=== PATIENT | female | born 2000 | race Caucasian/White ===

== ENCOUNTER 2020-09-08 11:25 | Emergency (ER) | payer OTHER, SELFPAY ==
[2020-09-08 11:31] VITALS: BP 111/63; PULSE 86; RESP 12; TEMP 36.5; O2SAT 99
--- NOTE | 2020-09-08 11:41 | ED.WOUNDLAC ---
HPI - Wound/Laceration General Chief Complaint: Wound/Laceration Stated Complaint: Laceration to left thumb Time Seen by Provider: 09/08/20 11:35 Source: patient Mode of arrival: ambulatory Limitations: no limitations History of Present Illness HPI narrative: Kaden is a 19 yo female with no PMH who was cutting onions and cut L thumb POA. control bleeding as long as thumb held stable, appears to have avulsed part of very tip of thumb, left. No comorbid morbid conditions no nausea vomiting diarrhea. Occurred at work, dressing intact Related Data Home Medications Medication Instructions Recorded Confirmed cholecalciferol (vitamin D3) 25 1,000 unit PO DAILY 11/20/19 12/21/19 mcg (1,000 unit) capsule montelukast [Singulair] 10 mg PO DAILY 09/08/20 09/08/20 Allergies Allergy/AdvReac Type Severity Reaction Status Date / Time peanut Allergy Unknown Anaphylactic Verified 09/08/20 11:57 Shock Review of Systems Review of Systems: Narrative: CONSTITUTIONAL: Denies fever, chills, sweats. EYES: Denies visual changes, redness, discharge. ENT: Denies rhinorrhea, congestion, sore throat, otalgia. CARDIOVASCULAR: Denies chest pain, palpitations, edema. RESPIRATORY: Denies dyspnea, wheezing, cough GASTROINTESTINAL: Denies abdominal pain, nausea, vomiting, diarrhea. GENITOURINARY: Denies dysuria, hematuria, abnormal discharge SKIN: Denies rash or itching. Avulsion injury to left thumb, distal NEUROLOGIC: Denies numbness, or focal weakness. PSYCHIATRIC: Denies anxiety or depression. [facility] Past Medical History Medical History (Updated 09/08/20 @ 12:06 by Katharine Osborne CNP) ADD (attention deficit disorder) Anxiety Asthma Back pain Family History Family History Father Hypertension Diabetes mellitus Heart disease Mother No problems noted. Sibling No problems noted. Grandparent Diabetes mellitus Heart disease Afib Thyroid disease Cataract COPD (chronic obstructive pulmonary disease) Chest pain Arthritis Non Hodgkin's lymphoma Social History Social History (Updated 09/08/20 @ 11:59 by Katharine Osborne CNP) Smoking status: Current every day smoker Tobacco type: e-cigarettes/vaping Alcohol intake: current Gender identity (if verbalized by the patient): Female Comments At time of signature, I agree with nursing past medical, surgical, social and family history. There is no relevant family history pertinent to the presenting complaint. Chest Exam Narrative: Exam Narrative: GENERAL: This is a well-nourished, well-developed patient, in mild distress. HEAD: normocephalic, atraumatic. EYES: Sclera clear/white. Vision is grossly intact. EARS: External ears normal. Hearing grossly intact. NOSE: External nose normal without nasal discharge, nares without redness, no rhinorrhea. THROAT: Mucous membranes moist, NECK: Neck supple, non-tender CARDIOVASCULAR: Regular rate and rhythm without murmurs, gallops, or rubs. RESPIRATORY: Clear to auscultation. Breath sounds equal bilaterally. No wheezes, rales, or rhonchi. GASTROINTESTINAL: Abdomen soft, SKIN: warm, intact with no suspicious lesions or rash, good texture and turgor. NEURO: awake, alert, and oriented to person, place and time. There were no obvious focal neurologic abnormalities. Steady gait EXTREMITIES: Normal range of motion. BACK: Nontender without deformity Course Course Emergency Course: Patient was cutting onions at work and cut distal part of left thumb Laceration repair with Dermabond and dressed with tube gauze Vital Signs Vital signs: Vital Signs Temperature 97.7 F 09/08/20 11:31 Pulse Rate 86 09/08/20 11:31 Respiratory Rate 12 09/08/20 11:31 Blood Pressure 111/63 09/08/20 11:31 Pulse Oximetry 99 09/08/20 11:31 Temperature 97.7 F 09/08/20 11:31 Pulse Rate 86 09/08/20 11:31 Respiratory Rate 12 09/08/20 11:3
[2020-09-08] MEDS: TETANUS,DIPHTHERIA,AC PERTUSSIS ADULT (0.5 ML) BOOSTRIX IM (11:52)
== END 2020-09-08 12:23 | disposition home or self-care (01) ==
PROVIDERS: Emergency Provider Nurse Practitioner
DX: S61.012A Laceration without foreign body of left thumb without damage to nail, initial encounter (principal); W45.8XXA Other foreign body or object entering through skin, initial encounter; Y99.0 Civilian activity done for income or pay; Z23 Encounter for immunization; F17.200 Nicotine dependence, unspecified, uncomplicated; J45.909 Unspecified asthma, uncomplicated
CPT/HCPCS: 12001; 90471; 90715; 99213; G0463

== ENCOUNTER 2020-10-11 13:03 | Outpatient (NON) | payer OTHER, SELFPAY ==
[2020-10-17 22:17] LABS: SARS-CoV-2 RNA PCR Negative
== END 2020-10-11 13:04 ==
LOC: ANHCOVIDDT 13:05
PROVIDERS: PCP Physician Assistant; Visit Provider Family Medicine
DX: Z20.828 Contact with and (suspected) exposure to other viral communicable diseases (principal); R09.81 Nasal congestion
CPT/HCPCS: C9803; U0003

== ENCOUNTER 2020-12-04 13:51 | Emergency (ER) | payer OTHER, SELFPAY ==
[2020-12-04 13:56] VITALS: BP 124/67; PULSE 87; RESP 16; TEMP 36.8; O2SAT 98
--- NOTE | 2020-12-04 14:05 | ED.FEMALEGU ---
HPI - Female Genitourinary General Chief complaint: Urogenital-Female Stated complaint: POS UTI Source: patient Mode of arrival: ambulatory Limitations: no limitations History of Present Illness HPI Narrative: Patient is a 20-year-old female who complains of dysuria and frequency x2 days. She denies hematuria. She denies fever, nausea, vomiting or other complaints. She denies taking any swvj-gal-jcabzug medications for symptom relief. MD elicited complaint: UTI Related Data Home Medications Medication Instructions Recorded Confirmed cholecalciferol (vitamin D3) 25 1,000 unit PO DAILY 11/20/19 12/04/20 mcg (1,000 unit) capsule montelukast [Singulair] 10 mg PO DAILY 09/08/20 12/04/20 Adult Probiotic 1 tab-cap PO DAILY 12/04/20 12/04/20 Fish Oil 1 tab-cap PO DAILY 12/04/20 Natural Vitamin E 1 tab-cap PO DAILY 12/04/20 12/04/20 fluoxetine [Prozac] 10 mg PO DAILY 12/04/20 12/04/20 valacyclovir 500 mg PO BID 12/04/20 12/04/20 Allergies Allergy/AdvReac Type Severity Reaction Status Date / Time peanut Allergy Unknown Anaphylactic Verified 12/04/20 13:53 Shock Review of Systems Review of Systems: Narrative: CONSTITUTIONAL: Denies fever, chills, or sweats. EYES: Denies visual changes, redness, or discharge. ENT: Denies rhinorrhea, congestion, sore throat, or otalgia. CARDIOVASCULAR: Denies chest pain, palpitations, or edema. RESPIRATORY: Denies cough or dyspnea. GASTROINTESTINAL: Denies abdominal pain, nausea, vomiting, or diarrhea. GENITOURINARY: Reports dysuria and frequency x2 days SKIN: Denies rash or itching. MUSCULOSKELETAL: Denies back pain, joint pain, or myalgia. NEUROLOGIC: Denies headache, numbness, dizziness, or weakness. PSYCHIATRIC: Denies anxiety or depression. [facility] Past Medical History Medical History (Updated 12/04/20 @ 14:52 by NIC Whitney) ADD (attention deficit disorder) Anxiety Asthma Back pain Family History Family History Father Hypertension Diabetes mellitus Heart disease Mother No problems noted. Sibling No problems noted. Grandparent Diabetes mellitus Heart disease Afib Thyroid disease Cataract COPD (chronic obstructive pulmonary disease) Chest pain Arthritis Non Hodgkin's lymphoma Social History Social History Smoking status: Current every day smoker Tobacco type: e-cigarettes/vaping Alcohol intake: current Gender identity (if verbalized by the patient): Female Comments At the time of signature, I have reviewed and agree with nursing past medical, surgical, social, and family history unless otherwise noted. Please see nursing chart for further information. There is no relevant family history pertinent to the presenting complaint. Exam Narrative: Exam Narrative: GENERAL: Well-appearing, well-nourished, and in no acute distress. HEAD: Normocephalic, atraumatic. EYES: No redness or drainage. Conjunctiva are normal. ENT: Mucous membranes pink and moist. CHEST: No respiratory distress. HEART: Regular rate and rhythm. EXTREMITIES: Normal range of motion. No edema. SKIN: Warm, dry, no rash. NEURO: No focal deficits. Alert and oriented x3. Gait steady. PSYCH: Normal affect. No signs of depression or anxiety. Course Vital Signs Vital signs: Vital Signs Temperature 36.8 C 12/04/20 13:56 Pulse Rate 87 12/04/20 13:56 Respiratory Rate 16 12/04/20 13:56 Blood Pressure 124/67 12/04/20 13:56 Pulse Oximetry 98 12/04/20 13:56 Temperature 36.8 C 12/04/20 13:56 Pulse Rate 87 12/04/20 13:56 Respiratory Rate 16 12/04/20 13:56 Blood Pressure 124/67 12/04/20 13:56 Pulse Oximetry 98 12/04/20 13:56 Reviewed MDM - Female Genitourinary MDM Narrative Medical decision making narrative: Patient shows leukocytes on her UA. Patient most likely has UTI. Patient to be treated with antibi
== END 2020-12-04 14:58 | disposition home or self-care (01) ==
PROVIDERS: Emergency Provider Nurse Practitioner; PCP Physician Assistant
DX: N39.0 Urinary tract infection, site not specified (principal); F17.200 Nicotine dependence, unspecified, uncomplicated; J45.909 Unspecified asthma, uncomplicated; F41.9 Anxiety disorder, unspecified
CPT/HCPCS: 81003; 87086; 99213; G0463

== ENCOUNTER 2021-01-20 11:32 | Outpatient (CLI) | payer OTHER, SELFPAY | END 2021-01-20 11:33 | disposition home or self-care (01) | LOC: ANHCOVIDVC 11:32 | PROVIDERS: PCP Physician Assistant | DX: Z23 Encounter for immunization (principal) | CPT/HCPCS: 0001A; 91300 ==

== ENCOUNTER 2021-02-10 11:29 | Outpatient (CLI) | payer OTHER, SELFPAY | END 2021-02-10 11:30 | disposition home or self-care (01) | LOC: ANHCOVIDVC 11:29 | PROVIDERS: PCP Family Medicine | DX: Z23 Encounter for immunization (principal) | CPT/HCPCS: 0002A; 91300 ==

== ENCOUNTER 2021-06-03 16:45 | Emergency (ER) | payer OTHER, SELFPAY ==
--- NOTE | ~2021-06-03 | XR_ITS ---
EXAMINATION: XR lumbar spine 2-3V DATE: 06/03/2021 17:56 INDICATION: Low back pain. TECHNIQUE: 3 views of the lumbar spine were obtained. COMPARISON: None. FINDINGS: Bone alignment is normal. Vertebral body heights and intervertebral disc heights are normal . The facet joints are normal. IMPRESSION: 1. Normal lumbar spine. Reviewed, dictated and finalized at location A. IMPRESSION: 1. Normal lumbar spine.
[2021-06-03 16:46] VITALS: BP 112/71; PULSE 77; RESP 20; TEMP 36.6; O2SAT 100
--- NOTE | 2021-06-03 17:44 | ED.BACK ---
HPI - Back Pain/Injury General Chief Complaint: Back Pain/Injury Stated Complaint: lolw back pain Time Seen by Provider: 06/03/21 17:26 Source: patient Mode of arrival: ambulatory Limitations: no limitations History of Present Illness HPI Narrative: This is a 20 year old male that presents to the ER for low back pain present over the last couple of weeks. Reports her sister popped her back. It has been bothering her since then. Reports the pain is constant and achy. Sometimes it is sharp. It is worse after being at work all day. It radiates into her legs. Denies fever, saddle anesthesia, or bowel/bladder incontinence. Related Data Home Medications Medication Instructions Recorded Confirmed cholecalciferol (vitamin D3) 25 1,000 unit PO DAILY 11/20/19 12/04/20 mcg (1,000 unit) capsule montelukast [Singulair] 10 mg PO DAILY 09/08/20 12/04/20 Adult Probiotic 1 tab-cap PO DAILY 12/04/20 12/04/20 Fish Oil 1 tab-cap PO DAILY 12/04/20 Natural Vitamin E 1 tab-cap PO DAILY 12/04/20 12/04/20 valacyclovir 500 mg PO BID 12/04/20 12/04/20 Allergies Allergy/AdvReac Type Severity Reaction Status Date / Time peanut Allergy Unknown Anaphylactic Verified 12/04/20 13:53 Shock Review of Systems Review of Systems: CONSTITUTIONAL: Denies fever SKIN: Denies rash MUSCULOSKELETAL: Reports back pain, joint pain, and myalgia. NEUROLOGIC: Denies numbness, or weakness. All systems reviewed & are unremarkable except as noted in HPI and below PMFSH Past Medical History Medical History (Updated 06/03/21 @ 18:53 by Tanja Mcdonnell PA-C) ADD (attention deficit disorder) Anxiety Asthma Back pain Family History Family History Father Hypertension Diabetes mellitus Heart disease Mother No problems noted. Sibling No problems noted. Grandparent Diabetes mellitus Heart disease Afib Thyroid disease Cataract COPD (chronic obstructive pulmonary disease) Chest pain Arthritis Non Hodgkin's lymphoma Social History Social History Smoking status: Current every day smoker Tobacco type: e-cigarettes/vaping Alcohol intake: current Alcohol use details: daily Gender identity (if verbalized by the patient): Female Exam Narrative: GENERAL: Well-appearing, well-nourished, and in no acute distress. HEAD: Normocephalic, atraumatic. EYES: EOMI. CHEST: Clear to auscultation. No respiratory distress. No wheezes rales or rhonchi HEART: Regular rate and rhythm. No murmur heard. Normal peripheral pulses. BACK: No midline spinal tenderness EXTREMITIES: Normal range of motion. No edema. Strength equal in bilateral lower extremities (5/5). Normal DP pulses SKIN: Warm, dry, no rash. NEURO: No focal deficits. Alert and oriented x3. PSYCH: Normal mood and affect Course Vital Signs Vital signs: Vital Signs Temperature 97.9 F 06/03/21 16:46 Pulse Rate 77 06/03/21 16:46 Respiratory Rate 20 06/03/21 16:46 Blood Pressure 112/71 06/03/21 16:46 Pulse Oximetry 100 06/03/21 16:46 Temperature 97.9 F 06/03/21 16:46 Pulse Rate 77 06/03/21 16:46 Respiratory Rate 20 06/03/21 16:46 Blood Pressure 112/71 06/03/21 16:46 Pulse Oximetry 100 06/03/21 16:46 MDM - Back Pain/Injury MDM Narrative Medical decision making narrative: Patient presents to the emergency department for low back pain present over the last couple of weeks. No certain trauma. She is neurologically intact. Lumbar spine x-rays without acute osseous abnormalities. Patient updated on case findings. Instructed to rest, ice and take [id number] pain medication as needed. Will be given muscle relaxer as needed for pain. She is to follow-up with primary care doctor. She was given warnings to return to the ER Imaging Data Radiologist's impression: ITS Impressions Lumbar Spine X-Ray 06/03/21 17:59
[2021-06-03] MEDS: KETOROLAC (*BKC) 60 MG/2 ML VIAL IM (18:18)
[2021-06-03] MEDS: ACETAMINOPHEN 500 MG TABLET 1000 MG PO (18:18)
[2021-06-03 19:02] VITALS: BP 139/75; PULSE 84; RESP 17; O2SAT 98
== END 2021-06-03 19:05 | disposition home or self-care (01) ==
PROVIDERS: Emergency Provider Emergency Medicine; PCP Physician Assistant
DX: M54.5 Low back pain (principal); F98.8 Other specified behavioral and emotional disorders with onset usually occurring in childhood and adolescence; F41.9 Anxiety disorder, unspecified; J45.909 Unspecified asthma, uncomplicated; F17.290 Nicotine dependence, other tobacco product, uncomplicated
CPT/HCPCS: 72100; 96372; 99283; A9270; J1885

== ENCOUNTER 2021-09-22 17:19 | Emergency (ER) | payer OTHER, SELFPAY ==
--- NOTE | ~2021-09-22 | XR_ITS ---
EXAMINATION: XR ankle RT min 3V EXAM DATE: 09/22/2021 17:43 INDICATION: Inversion Injury, lateral Malleolus Pain . Initial encounter. TECHNIQUE: Right ankle frontal, lateral and oblique projections obtained and reviewed. There is no p rior study for comparison. FINDINGS: The right ankle mortise appears intact. There are no acute fractures or dislocations iden tified. There is no subcutaneous gas. There is soft tissue swelling over the ankle anterolaterally. There are no radiopaque foreign bodies. IMPRESSION: 1. XR ankle RT min 3V exam without acute osseous findings. Reviewed, dictated and finalized at location A. [employer]
[2021-09-22 17:26] VITALS: BP 102/58; PULSE 70; RESP 14; TEMP 37.4; O2SAT 99
--- NOTE | 2021-09-22 17:43 | PC.NURSE ---
PT DECLINED WHEELCHAIR AND ICE FOR COMFORT
--- NOTE | 2021-09-22 17:53 | ED.LOWEXIN ---
HPI - Extremity Injury (Lower) General Chief Complaint: Extremity Injury, Lower Stated Complaint: rt ankle swelling Source: patient and RN notes reviewed Mode of arrival: ambulatory History of Present Illness HPI Narrative: This is a 20-year-old female who presented to our urgent care with complaints of right ankle pain status post trauma. According to the patient on Saturday she fell and twisted her right ankle. Patient notes that while she was at home she iced wrap and use ibuprofen for the inflammation. Patient noted that she decided to come to our facility because she did not have any improvement with her situation. No neurovascular deficiency, compartmental syndrome, pulses are present capillary refill within normal limits. Patient notes that her pain increases with inversion of her foot. Related Data Home Medications Medication Instructions Recorded Confirmed cholecalciferol (vitamin D3) 25 1,000 unit PO DAILY 11/20/19 09/22/21 mcg (1,000 unit) capsule montelukast [Singulair] 10 mg PO DAILY 09/08/20 09/22/21 valacyclovir 500 mg PO BID 12/04/20 09/22/21 doxycycline monohydrate 100 mg PO DAILY 09/22/21 09/22/21 etonogestrel [Nexplanon] 1 implant SUBDERMAL ONCE 09/22/21 09/22/21 fluoxetine 20 mg PO DAILY 09/22/21 09/22/21 spironolactone 50 mg PO DAILY 09/22/21 09/22/21 Allergies Allergy/AdvReac Type Severity Reaction Status Date / Time peanut Allergy Unknown Anaphylactic Verified 09/22/21 17:36 Shock Review of Systems Review of Systems: A 14 organ system Review of Systems was performed and pertinent positives included in the HPI, otherwise remaining ROS is negative. [facility] Past Medical History Medical History (Updated 09/22/21 @ 18:03 by CHELSEA Heath) ADD (attention deficit disorder) Anxiety Asthma Back pain Family History Family History (Updated 09/22/21 @ 17:58 by CHELSEA Heath) Father Hypertension Diabetes mellitus Heart disease Mother No problems noted. Sibling No problems noted. Grandparent Diabetes mellitus Heart disease Afib Thyroid disease Cataract COPD (chronic obstructive pulmonary disease) Chest pain Arthritis Non Hodgkin's lymphoma Other Family history non-contributory Social History Social History Smoking status: Current every day smoker Tobacco type: e-cigarettes/vaping Alcohol intake: current Alcohol use details: daily Gender identity (if verbalized by the patient): Female Exam Narrative: GENERAL: This is a well-nourished, well-developed patient, in no apparent distress. HEAD: normocephalic, atraumatic. EYES: PERRL. Sclera clear/white. Vision is grossly intact. EARS: External ears normal, auditory canals clear and without drainage, TMs normal without perforation. Hearing grossly intact. NOSE: External nose normal with no obvious nasal discharge, nares without redness, no rhinorrhea. THROAT: Mucous membranes moist, posterior pharynx clear. NECK: Neck supple, non-tender without lymphadenopathy, masses or thyromegaly. CARDIOVASCULAR: Regular rate and rhythm without murmurs, gallops, or rubs. RESPIRATORY: Clear to auscultation. Breath sounds equal bilaterally. No wheezes, rales, or rhonchi. GASTROINTESTINAL: Abdomen soft, non-tender, nondistended. Bowel sounds are active. No hepato-splenomegaly, or palpable masses. No guarding. SKIN: warm, intact with no suspicious lesions or rash, good texture and turgor. NEURO: awake, alert, and oriented to person, place and time. There were no obvious focal neurologic abnormalities. Steady gait EXTREMITIES: Right ankle limited range of motion due to pain with edema . No calf tenderness. Negative Homans sign bilaterally. BACK: Nontender without deformity or crepitance. No flank tenderness. Course Vital Signs Vital signs: Vital Signs Temperature 99.4 F 09/22/21 17:26 Pulse Rate 70 09/22/21 17:26 Respiratory Rate
== END 2021-09-22 18:10 | disposition home or self-care (01) ==
PROVIDERS: Emergency Provider Nurse Practitioner; PCP Physician Assistant
DX: S93.401A Sprain of unspecified ligament of right ankle, initial encounter (principal); S96.911A Strain of unspecified muscle and tendon at ankle and foot level, right foot, initial encounter; W19.XXXA Unspecified fall, initial encounter; J45.909 Unspecified asthma, uncomplicated; F41.9 Anxiety disorder, unspecified
CPT/HCPCS: 73610; 99213; G0463

== ENCOUNTER 2021-09-26 07:58 | Emergency (ER) | payer OTHER, SELFPAY ==
--- NOTE | ~2021-09-26 | CT_ITS ---
EXAMINATION: CT abdomen pelvis w con DATE: 09/26/2021 10:33 INDICATION: Right flank pain and abdominal pain. TECHNIQUE: Computed tomography (CT) of the abdomen and pelvis was performed with 100 mL Omnipaque-350 intravenous contrast. Automated exposure control and iterative reconstruction technique were employe d. The dose-length product was 464.37 mGy-cm. COMPARISON: 02/11/2018 FINDINGS: Lung bases are clear. Heart size is normal. No pericardial or pleural effusion. Small focus of hepati c steatosis at the ligamentum teres. Gallbladder, pancreas, and spleen and bilateral adrenal glands a re normal. 2 mm stone at the right ureterovesicular junction. No other evident urolithiasis. Bilatera l kidneys are normal symmetric enhancement and no hydronephrosis. Bladder is normal. Retroverted uter us and bilateral adnexa are unremarkable. Bowels are normal with no wall thickening or obstruction. N ormal retrocecal appendix. No free intraperitoneal gas or fluid. No pathologically enlarged abdominal or pelvic lymphadenopathy. Bones are unremarkable. IMPRESSION: 1. Nonobstructing 2 mm stone at the right ureterovesicular junction without hydronephrosis. Reviewed, dictated and finalized at location A. TO CHIP FRYER IMPRESSION: 1. Nonobstructing 2 mm stone at the right ureterovesicular junction without hyd ronephrosis.
[2021-09-26 08:01] VITALS: BP 115/76; PULSE 76; RESP 16; TEMP 36.9; O2SAT 99
--- NOTE | 2021-09-26 10:03 | ED.GENADULT ---
HPI - General Adult General Chief complaint: Abdominal Pain Stated complaint: back pain Time Seen by Provider: 09/26/21 08:01 Source: patient and RN notes reviewed History of Present Illness HPI narrative: Patient is a 20 y/o female complaining right lower abdominal pain starting 2 days ago. She describes her pain as stabbing and cramping. She rates her pain as 7/10. She took Ibuprofen which helps slight. She had one episode of vomiting today. She has no diarrhea, dysuria or hematuria. She also has some right back pain which attributed to a fall a few days ago. Related Data Home Medications Medication Instructions Recorded Confirmed cholecalciferol (vitamin D3) 25 1,000 unit PO DAILY 11/20/19 09/22/21 mcg (1,000 unit) capsule montelukast [Singulair] 10 mg PO DAILY 09/08/20 09/22/21 valacyclovir 500 mg PO BID 12/04/20 09/22/21 doxycycline monohydrate 100 mg PO DAILY 09/22/21 09/22/21 etonogestrel [Nexplanon] 1 implant SUBDERMAL ONCE 09/22/21 09/22/21 fluoxetine 20 mg PO DAILY 09/22/21 09/22/21 spironolactone 50 mg PO DAILY 09/22/21 09/22/21 Allergies Allergy/AdvReac Type Severity Reaction Status Date / Time peanut Allergy Unknown Anaphylactic Verified 09/22/21 17:36 Shock Review of Systems Constitutional: Constitutional: Denies chills, Denies fever(s), Denies headache(s) and Denies weakness Eyes: Eyes: Denies blurry vision ENT: Denies headache(s) and Denies neck pain Cardiovascular: Cardiovascular: Denies chest pain and Denies dyspnea Respiratory: Respiratory: Denies cough and Denies dyspnea Gastrointestinal: Gastrointestinal: Reports abdominal pain, Denies diarrhea, Reports nausea and Reports vomiting Genitourinary: Genitourinary: Denies hematuria and Denies dysuria Musculoskeletal: Musculoskeletal: Reports back pain and Denies neck pain Neurologic: Denies headache(s) and Denies weakness [facility] Past Medical History Medical History (Updated 09/26/21 @ 12:47 by Aranza Coulter MD) ADD (attention deficit disorder) Anxiety Asthma Back pain Family History Family History Father Hypertension Diabetes mellitus Heart disease Mother No problems noted. Sibling No problems noted. Grandparent Diabetes mellitus Heart disease Afib Thyroid disease Cataract COPD (chronic obstructive pulmonary disease) Chest pain Arthritis Non Hodgkin's lymphoma Other Family history non-contributory Social History Social History Smoking status: Current every day smoker Tobacco type: e-cigarettes/vaping Alcohol intake: current Alcohol use details: daily Gender identity (if verbalized by the patient): Female Exam Const: General: no acute distress and well developed Orientation/consciousness: oriented to person, oriented to place, oriented to time and patient oriented x3 HENMT: Head: normocephalic Ears: external ears normal General nose exam: Normal external nose present Eyes: General: appearance normal, both eyes and all related structures Conjunctivae: conjunctivae normal Neck: Neck: normal visual inspection and full ROM Chest: Chest palpation & inspection: normal inspection of the chest and no tenderness Resp: Effort & Inspection: normal respiratory effort Auscultation: clear to auscultation bilaterally Cardio: Rate: regular rate Rhythm: regular rhythm GI: GI Palp: No abdominal tenderness and Yes Soft to palpation Skin: General skin exam: normal color and turgor normal Neuro: General: oriented to person, oriented to place, oriented to time and patient oriented x3 Cognition (Neuro): normal cognition Extrem: General: normal to inspection, full ROM and no pedal edema Psych: Appearance: grossly normal Mental Status: mental status grossly normal Affect: normal affect Course Vital Signs Vital signs: Vital Signs Temperature 36.9 C 09/26/21 08:
[2021-09-26 10:06] LABS: Basophils Percent Auto 0.2 % (0.2-1.2); Eosinophils Absolute Auto 0.1 K/mm3 (0-0.3); Eosinophils Percent Auto 1.1 % (0-4.4); Hematocrit 41.4 % (37.0-47.0); Hemoglobin 13.5 g/dL (12.0-15.0); Immature Granulocyte Absolute 0.03 K/mm3 (0.00-0.031); Immature Granulocyte Percent A 0.4 % (0-0.5); Lymphocytes Absolute Auto 2.07 K/mm3 (0.9-3.2); Lymphocytes Percent Auto 24.7 % (18.3-44.2); Mean Corpuscular HGB Conc 32.6 g/dl (32-36); Mean Corpuscular Hemoglobin 29.9 pg (26-34); Mean Corpuscular Volume 91.8 fl (80-100); Mean Platelet Volume 9.1 fl (7.4-10.4); Monocytes Absolute Auto 0.6 K/mm3 (0.1-0.6); Monocytes Percent Auto 7.4 % (2.6-8.5); Neutrophils Absolute Auto 5.6 K/mm3 (1.3-6.7); Neutrophils Percent Auto 66.2 % (45.5-73.1); Platelet Count Result 283 k/mm3 (150-375); Red Blood Count 4.51 M/mm3 (4.2-5.4); Red Cell Distribution Width 13.5 % (11.5-14.5); White Blood Count 8.4 K/mm3 (4.5-10.0)
[2021-09-26] MEDS: KETOROLAC 30 MG/ML VIAL (*BKC) IV PUSH (10:06)
[2021-09-26] MEDS: METOCLOPRAMIDE HCL INJ 10 MG/2 ML VIAL IV PUSH (10:07)
[2021-09-26 10:10] LABS: Alanine Aminotransferase 17 U/L (4-35); Albumin Level 4.6 g/dL (3.5-5.1); Alkaline Phosphatase 76 U/L (38-126); Anion Gap 7 mmol/L (8-16); Aspartate Amino Transferase 22 U/L (14-36); Bilirubin,Total 0.5 mg/dL (0.2-1.3); Blood Urea Nitrogen 13 mg/dL (7-17); Calcium 9.9 mg/dL (8.4-10.2); Carbon Dioxide 27 mmol/L (22-30); Chloride 102 mmol/L (98-107); Estimated CRCL calculation 92 ml/min; Estimated Glomerular Filt Rate > 60; Glucose 91 mg/dL (65-110); Potassium 4.1 mmol/L (3.4-5.0); Sodium 136 mmol/L (137-145)
[2021-09-26 10:13] LABS: Add Urine Microscopic? YES; Appearance Urine Cloudy (Clear); Bilirubin Urine Negative (Negative); Blood Urine 3+ (Negative); Color Urine Amber (Yellow); Glucose Urine UA Negative (Negative); Ketones Urine Trace mg/dL (Negative); Leukocyte Esterase Ur Negative LEU/UL (Negative); Mucus Urine Heavy /lpf; Nitrate Urine Negative (Negative); Protein Urine 2+ mg/dL (Negative); RBC Urine >75 /hpf (0-2); Squamous Epithelial Cell Urine Many /hpf (Few); Urobilinogen Urine Negative mg/dL (<2.0)
[2021-09-26 10:46] LABS: Specific Grav Ur 1.031 (1.001-1.035)
[2021-09-26 11:00] VITALS: BP 99/66; PULSE 63; RESP 18; O2SAT 99
[2021-09-26 13:13] VITALS: BP 105/58; PULSE 70; RESP 18; O2SAT 100
== END 2021-09-26 13:14 | disposition home or self-care (01) ==
PROVIDERS: Emergency Provider Emergency Medicine; PCP Physician Assistant
DX: N20.1 Calculus of ureter (principal); F98.8 Other specified behavioral and emotional disorders with onset usually occurring in childhood and adolescence; F41.9 Anxiety disorder, unspecified; J45.909 Unspecified asthma, uncomplicated; F17.210 Nicotine dependence, cigarettes, uncomplicated
CPT/HCPCS: 36415; 74177; 80053; 81001; 81025; 85025; 87086; 87088; 96374; 96375; 99284; J1885; J2765; Q9967

== ENCOUNTER 2021-12-13 18:09 | Emergency (ER) | payer OTHER, SELFPAY ==
[2021-12-13 18:14] VITALS: BP 106/57; PULSE 75; RESP 16; TEMP 37.7; O2SAT 99
--- NOTE | 2021-12-13 18:25 | ED.NAVMDI ---
HPI - Nausea/Vomiting/Diarrhea General Chief complaint: Nausea/Vomiting/Diarrhea Stated complaint: Vomiting Time Seen by Provider: 12/13/21 18:34 Source: patient and RN notes reviewed Mode of arrival: ambulatory Limitations: no limitations History of Present Illness HPI Narrative: 21-year-old female presents with concern for vomiting. She reports she had one episode of vomiting on Saturday, had no episodes of vomiting on Saturday, and had one episode of vomiting today. She denies abdominal pain, sore throat, nasal congestion, rhinorrhea, cough, body aches, chills, fever, sweats. She denies decreased appetite. She reports some nausea, however reports she usually has nausea due to her medications. MD elicited complaint: nausea and vomiting Related Data Home Medications Medication Instructions Recorded Confirmed cholecalciferol (vitamin D3) 25 1,000 unit PO DAILY 11/20/19 09/22/21 mcg (1,000 unit) capsule montelukast [Singulair] 10 mg PO DAILY 09/08/20 09/22/21 valacyclovir 500 mg PO BID 12/04/20 09/22/21 doxycycline monohydrate 100 mg PO DAILY 09/22/21 09/22/21 etonogestrel [Nexplanon] 1 implant SUBDERMAL ONCE 09/22/21 09/22/21 fluoxetine 20 mg PO DAILY 09/22/21 09/22/21 spironolactone 50 mg PO DAILY 09/22/21 09/22/21 Allergies Allergy/AdvReac Type Severity Reaction Status Date / Time peanut Allergy Unknown Anaphylactic Verified 12/13/21 18:12 Shock Review of Systems Review of Systems: CONSTITUTIONAL: Denies malaise, chills, sweats, or fever. ENT: Denies rhinorrhea, congestion, sinus pain, otalgia or sore throat. CARDIOVASCULAR: Denies chest pain, palpitations, or edema. RESPIRATORY: Denies cough or dyspnea. GASTROINTESTINAL: Denies abdominal pain, nausea, diarrhea, bloody, or mucous stools. She reports one episode of vomiting on Saturday, one episode of vomiting today GENITOURINARY: Denies dysuria or hematuria. MUSCULOSKELETAL: Denies myalgia. NEUROLOGIC: Denies headache. All systems reviewed & are unremarkable except as noted in HPI and below PMFSH Past Medical History Medical History (Updated 12/13/21 @ 18:45 by Lynda Watson NP) ADD (attention deficit disorder) Anxiety Asthma Back pain Family History Family History Father Hypertension Diabetes mellitus Heart disease Mother No problems noted. Sibling No problems noted. Grandparent Diabetes mellitus Heart disease Afib Thyroid disease Cataract COPD (chronic obstructive pulmonary disease) Chest pain Arthritis Non Hodgkin's lymphoma Other Family history non-contributory Social History Social History Smoking status: Current every day smoker Tobacco type: e-cigarettes/vaping Alcohol intake: current Alcohol use details: daily Gender identity (if verbalized by the patient): Female Comments At time of signature, agree with nursing past medical, surgical, social and family history. There is no relevant family history pertinent to the presenting complaint Exam Narrative: GENERAL: Well-appearing, well-nourished, and in no acute distress. HEAD: Normocephalic, atraumatic. EYES: PERRLA, conjunctivae clear, and EOMI. ENT: Nares clear, turbinates pink, no rhinorrhea or epistaxis. Mucous membranes moist. Oropharynx without edema, erythema, or lesions. Tonsils not enlarged and without exudate. NECK: Supple. No lymphadenopathy CHEST: Speaks in full sentences. No respiratory distress. HEART: Regular rate and rhythm. ABDOMEN: Soft, flat, nondistended. No guarding, rebound tenderness, or rigid. No pulsatilla masses. Bowel sounds present in all four quadrants. No organomegaly. Negative Liriano?s sign. No periumbilical tenderness. No Supra public tenderness or distension. No hernia noted. No scars or surface trauma. SKIN: Warm, dry, no rash. NEURO: Alert and oriented x3. PSYCH: Normal mood and affect Course Cours
== END 2021-12-13 19:17 | disposition home or self-care (01) ==
PROVIDERS: Emergency Provider Nurse Practitioner; PCP Physician Assistant
DX: R11.10 Vomiting, unspecified (principal); J45.909 Unspecified asthma, uncomplicated; F41.9 Anxiety disorder, unspecified
CPT/HCPCS: 99211; G0463

== ENCOUNTER 2022-04-06 22:11 | Emergency (ER) | payer OTHER, SELFPAY ==
[2022-04-06 22:26] VITALS: BP 114/63; PULSE 86; RESP 18; TEMP 36.8; O2SAT 99
--- NOTE | 2022-04-06 22:32 | ED.ALLEREA ---
HPI - Allergic Reaction General Chief complaint: Allergic Reaction Stated complaint: allergic reaction Time Seen by Provider: 04/06/22 22:25 History of Present Illness HPI narrative: Patient is a 21-year-old female with a history of allergies to peanuts here for evaluation of lip swelling and redness to her bilateral arms. Patient states that she was eating some sour Gummies in her bed 45 minutes [employer] when all of a sudden she felt flushed and that her lips were swelling up. Patient took 2 Benadryl and a pepcid with good resolution of her symptoms, but she presents to the ED per recommendation of her mother. Patient did not use her epi pen. No throat tightness, difficulty breathing, lightheadedness or other symptoms. Related Data Home Medications Medication Instructions Recorded Confirmed cholecalciferol (vitamin D3) 25 1,000 unit PO DAILY 11/20/19 12/13/21 mcg (1,000 unit) capsule montelukast 10 mg tablet 10 mg PO DAILY 09/08/20 12/13/21 (Singulair) valacyclovir 500 mg tablet 500 mg PO BID 12/04/20 12/13/21 doxycycline monohydrate 100 mg 100 mg PO DAILY 09/22/21 12/13/21 tablet etonogestrel 68 mg subdermal 1 implant subdermal ONCE 09/22/21 12/13/21 implant (Nexplanon) spironolactone 50 mg tablet 50 mg PO DAILY 09/22/21 12/13/21 Allergies Allergy/AdvReac Type Severity Reaction Status Date / Time peanut Allergy Unknown Anaphylactic Verified 12/13/21 18:12 Shock Review of Systems Review of Systems: Gen: Denies fevers or chills Eyes: Denies eye pain or visual change ENT: Reports lip swelling. Denies congestion Respiratory: Denies shortness of breath or cough CV: Denies chest pain or palpitations GI: Denies abdominal pain nausea, emesis or diarrhea denies burning, urgency, frequency or hematuria Musculoskeletal: Denies back pain or muscle pain Neuro: Denies numbness, tingling, weakness or focal weakness Skin: Reports redness to skin Except as documented, all other systems reviewed and negative PMFSH Past Medical History Medical History (Updated 04/06/22 @ 23:53 by Tanja Alcantara PA-C) ADD (attention deficit disorder) Anxiety Asthma Back pain Family History Family History Father Hypertension Diabetes mellitus Heart disease Mother No problems noted. Sibling No problems noted. Grandparent Diabetes mellitus Heart disease Afib Thyroid disease Cataract COPD (chronic obstructive pulmonary disease) Chest pain Arthritis Non Hodgkin's lymphoma Other Family history non-contributory Social History Social History Smoking status: Current every day smoker Tobacco type: e-cigarettes/vaping Alcohol intake: current Alcohol use details: daily Gender identity (if verbalized by the patient): Female Exam Narrative: APPEARANCE: No acute distress, nontoxic, resting in bed EYES: EOMI HEENT: Normocephalic, atraumatic, OMM RESPIRATORY: No respiratory distress. Clear to auscultation bilaterally with no rhonchi wheezing or rales. CARDIOVASCULAR: Regular rate and rhythm without murmurs rubs or gallops. ABDOMINAL: Soft, nontender, nondistended, no rebound or guarding MUSCULOSKELETAl: Moves all extremities. No clubbing, cyanosis or edema. NEURO: Awake and alert. Following commands, speech normal, no focal deficits SKIN: Face is flushed. Warm, dry. No rashes lesions or abrasions PSYCHIATRIC: Normal affect/mood, Course Vital Signs Vital signs: Vital Signs Temperature 98.2 F 04/06/22 22:26 Pulse Rate 86 04/06/22 22:26 Respiratory Rate 18 04/06/22 22:26 Blood Pressure 114/63 04/06/22 22:26 Pulse Oximetry 99 04/06/22 22:26 Oxygen Delivery Room Air 04/06/22 22:26 Temperature 98.2 F 04/06/22 22:26 Pulse Rate 73 04/06/22 23:38 Respiratory Rate 18 04/06/22 23:38 Blood Pressure 94/56 L 04/06/22 23:38 Pulse Oximetry 100 0
[2022-04-06] MEDS: FAMOTIDINE 20 MG TABLET 40 MG PO (23:04)
[2022-04-06] MEDS: predniSONE 20 MG TABLET 40 MG PO (23:04)
[2022-04-06 23:38] VITALS: BP 94/56; PULSE 73; RESP 18; O2SAT 100
== END 2022-04-07 00:11 | disposition home or self-care (01) ==
PROVIDERS: Emergency Provider Emergency Medicine; PCP Physician Assistant
DX: T78.40XA Allergy, unspecified, initial encounter (principal); J45.909 Unspecified asthma, uncomplicated; F17.290 Nicotine dependence, other tobacco product, uncomplicated; F98.8 Other specified behavioral and emotional disorders with onset usually occurring in childhood and adolescence; F41.9 Anxiety disorder, unspecified; Z91.010 Allergy to peanuts
CPT/HCPCS: 99283; A9270; J7512

== ENCOUNTER 2023-02-09 21:17 | Emergency (ER) | payer OTHER, SELFPAY ==
[2023-02-09] VITALS (15 sets, daily range): BP systolic 105–124; BP diastolic 62–85; PULSE 89–116; RESP 12–24; TEMP 36.4; O2SAT 96–100
--- NOTE | 2023-02-09 21:35 | ED.ALLEREA ---
HPI - Allergic Reaction General Chief complaint: Allergic Reaction <Nina Carroll MD - Last Filed: 02/09/23 22:45> Stated complaint: allergic reaction <Nina Carroll MD - Last Filed: 02/09/23 22:45> Time Seen by Provider: 02/09/23 21:27 <Nina Carroll MD - Last Filed: 02/09/23 22:45> Source: patient, EMS and RN notes reviewed <Nina Carroll MD - Last Filed: 02/09/23 22:45> Mode of arrival: EMS <Nina Carroll MD - Last Filed: 02/09/23 22:45> Limitations: no limitations <Nina Carroll MD - Last Filed: 02/09/23 22:45> History of Present Illness HPI narrative: This is a 22 year old female who presents for evaluation of an allergic reaction. Patient states she was watching tv when she developed lip swelling, sore throat and throat swelling. She also reports having itchy hands. She took benadryl 50 mg PO at that time. She states she has had allergic reactions in the past but benadryl usual resolves her symptoms. She continue to feel throat discomfort and wheezing so they called 911. She reports that she feels better. She still feels like throat discomfort, but her shortness of breath and wheezing have resolved. Her itching hands have resolved as well. She reports history of allergy to peanuts but she does not think she was exposed to any nuts. She ate banana bread that she made. She also reports eating pork dumpling that she has eating many times before. She reports she started taking new supplement of magnesium. <Nina Carroll MD - Last Filed: 02/09/23 22:45> Related Data Home medications: Home Medications Medication Instructions Recorded Confirmed cholecalciferol (vitamin D3) 25 1,000 unit PO DAILY 11/20/19 12/13/21 mcg (1,000 unit) capsule montelukast 10 mg tablet 10 mg PO DAILY 09/08/20 12/13/21 (Singulair) valacyclovir 500 mg tablet 500 mg PO BID 12/04/20 12/13/21 doxycycline monohydrate 100 mg 100 mg PO DAILY 09/22/21 12/13/21 tablet etonogestrel 68 mg subdermal 1 implant subdermal ONCE 09/22/21 12/13/21 implant (Nexplanon) spironolactone 50 mg tablet 50 mg PO DAILY 09/22/21 12/13/21 <Nina Carroll MD - Last Filed: 02/09/23 22:45> Allergies/adverse reactions: Allergies Allergy/AdvReac Type Severity Reaction Status Date / Time peanut Allergy Unknown Anaphylactic Verified 12/13/21 18:12 Shock <Nina Carroll MD - Last Filed: 02/09/23 22:45> Review of Systems Constitutional: Constitutional: Denies weakness <Nina Carroll MD - Last Filed: 02/09/23 22:45> ENT: Reports sore throat <Nina Carroll MD - Last Filed: 02/09/23 22:45> Cardiovascular: Cardiovascular: Denies syncope, Denies rapid heart rate, Denies irregular heart rhythm, Denies leg edema and Denies dyspnea <Nina Carroll MD - Last Filed: 02/09/23 22:45> Respiratory: Respiratory: Denies chest congestion, Denies hemoptysis, Denies excessive phlegm production, Reports dyspnea and Reports wheezing <Nina Carroll MD - Last Filed: 02/09/23 22:45> Gastrointestinal: Gastrointestinal: Denies abdominal pain, Denies hematochezia, Denies diarrhea and Denies vomiting <Nina Carroll MD - Last Filed: 02/09/23 22:45> Genitourinary: Genitourinary: Denies hematuria and Denies dysuria <Nina Carrlol MD - Last Filed: 02/09/23 22:45> Musculoskeletal: Musculoskeletal: Denies joint swelling, Denies loss of height and Denies muscle weakness <Nina Carroll MD - Last Filed: 02/09/23 22:45> Integumentary/Breasts: Skin/Breast: Reports pruritus and Denies rash <Nina Carroll MD - Last Filed: 02/09/23 22:45> Neurologic: Denies syncope, Denies focal weakness and Denies weakness <Nina Carroll MD - Last Filed: 02/09/23 22:45> [facility] Past Medical History Medical History: Medical History (Updated 02/09/23 @ 22:45 by Nina Carroll MD) ADD (attention deficit disorder) Anxiety Asthma Back pain <Nina Carroll MD - L
[2023-02-09] MEDS: predniSONE 20 MG TABLET 60 MG PO (22:15)
[2023-02-09] MEDS: EPINEPHrine HCL INJ 1 MG/ML AMPUL 0.3 MG IM (22:16)
[2023-02-09] MEDS: FAMOTIDINE 20 MG/2 ML VIAL IV PUSH (22:20)
[2023-02-10] VITALS (10 sets, daily range): BP systolic 116–128; BP diastolic 76–82; PULSE 90–103; RESP 18–22; O2SAT 95–98
== END 2023-02-10 02:04 | disposition home or self-care (01) ==
PROVIDERS: Emergency Provider General Practice; PCP Physician Assistant
DX: T78.40XA Allergy, unspecified, initial encounter (principal); J45.909 Unspecified asthma, uncomplicated; F98.8 Other specified behavioral and emotional disorders with onset usually occurring in childhood and adolescence; F41.9 Anxiety disorder, unspecified; F17.290 Nicotine dependence, other tobacco product, uncomplicated; Z91.010 Allergy to peanuts
CPT/HCPCS: 96372; 96374; 99284; J0171; J7512

== ENCOUNTER 2023-12-13 11:21 | Emergency (ER) | payer OTHER, SELFPAY ==
[2023-12-13 11:37] VITALS: BP 126/69; PULSE 81; RESP 16; TEMP 36.9; O2SAT 100
--- NOTE | 2023-12-13 11:54 | ED.URI ---
HPI - URI/Sore Throat General Chief Complaint: Upper Respiratory Infection Stated Complaint: SORE/SWOLLEN THROAT/COUGH/TIRED Time Seen by Provider: 12/13/23 11:55 Source: patient and RN notes reviewed Mode of arrival: ambulatory Limitations: no limitations History of Present Illness HPI Narrative: 23-year-old female presents to [facility] with complaint of sore throat, bilateral ear discomfort, sinus pressure, headache fatigue for 2 days. Patient has attempted to treat at home with ibuprofen with some relief. Patient endorses history of anxiety, seasonal allergies and anaphylactic allergy to magnesium. Patient able to tolerate fluids by mouth. Related Data Home Medications Medication Instructions Recorded Confirmed cholecalciferol (vitamin D3) 25 1,000 unit PO DAILY 11/20/19 11/21/23 mcg (1,000 unit) capsule valacyclovir 500 mg tablet 500 mg PO BID 12/04/20 11/21/23 etonogestrel 68 mg subdermal 1 implant subdermal ONCE 09/22/21 11/21/23 implant (Nexplanon) cetirizine 10 mg tablet (Zyrtec) 10 mg PO DAILY PRN Allergic 08/22/23 11/21/23 Symptoms cranberry extract 650 mg capsule 1,300 mg PO DAILY 08/22/23 11/21/23 omega-3 fatty acids 1,000 mg 1,000 mg PO DAILY 08/22/23 11/21/23 capsule Allergies Allergy/AdvReac Type Severity Reaction Status Date / Time magnesium Allergy Severe Anaphylaxis Verified 11/21/23 09:07 peanut Allergy Unknown Anaphylactic Verified 11/21/23 09:07 Shock Review of Systems Review of Systems: All systems reviewed & are unremarkable except as noted in HPI and below Constitutional: Constitutional: Reports fatigue and Reports headache(s) Eyes: Eyes: Reports no additional eye complaints ENT: Denies dizziness, Reports headache(s), Reports nasal congestion, Denies neck pain, Reports sinus pressure, Reports sore throat and Reports throat swelling Cardiovascular: Cardiovascular: Reports no additional cardiovascular complaints, Denies chest pain and Denies dyspnea Respiratory: Respiratory: Reports no additional respiratory complaints, Denies cough and Denies dyspnea Gastrointestinal: Gastrointestinal: Denies abdominal pain, Denies change in bowel habits, Denies dysphagia and Denies diarrhea Musculoskeletal: Musculoskeletal: Reports no additional musculoskeletal complaints Neurologic: Reports system reviewed and no additional complaints, except as documented Psychiatric: Psychiatric: Reports no additional psychiatric complaints PMFSH Past Medical History Medical History ADD (attention deficit disorder) Anxiety Asthma Back pain Broken wrist Left in high school Staph infection Removal 2003 Family History Family History Father Hypertension Diabetes mellitus Heart disease Mother Depression Sibling Depression Grandparent Diabetes mellitus Heart disease Afib Thyroid disease Cataract COPD (chronic obstructive pulmonary disease) Chest pain Arthritis Non Hodgkin's lymphoma Malignant neoplasm of prostate Skin cancer Hypertension Depression Other Family history non-contributory Social History Social History Smoking status: Current every day smoker Tobacco type: e-cigarettes/vaping Alcohol intake: current Alcohol use details: daily Substance use: current Substance use type: marijuana Gender identity (if verbalized by the patient): Female Comments At the time of my signature, I reviewed and agree with the nursing past medical, surgical, social, and family history. There is no relevant family history pertinent to the patient complaint. Exam Const: General: cooperative, healthy appearing, comfortable, no acute distress, alert, ill appearing, tired appearing and well nourished Nutritional Appearance: well nourished Orientation/consciousness: patient oriented x3 Limitations:
== END 2023-12-13 12:17 | disposition home or self-care (01) ==
PROVIDERS: Emergency Provider Nurse Practitioner Family; PCP Emergency Medicine
DX: J06.9 Acute upper respiratory infection, unspecified (principal); Z20.822 Contact with and (suspected) exposure to COVID-19; F17.290 Nicotine dependence, other tobacco product, uncomplicated; F12.90 Cannabis use, unspecified, uncomplicated; J45.909 Unspecified asthma, uncomplicated; Z86.19 Personal history of other infectious and parasitic diseases
CPT/HCPCS: 87081; 87426; 87804; 87880; 99213; G0463